=== PATIENT | male | born 1970 | race African-American/Black ===

== ENCOUNTER 2017-08-22 10:27 | Day surgery (SDC) | payer OTHER ==
[~2017-08-22] VITALS: Ht 188 cm; Wt 94.0 kg
[~2017-08-22 10:27] MED LIST: DOLOPHINE HCL10 MG PO; LO-DOSE ASPIRIN81 M1 PO; MICROZIDE12.5 M1 PO; MULTI-VITAMIN1 EAC4 PO; OXYCODONE HCL10 MG PO; PRAVACHOL20 MG PO; VERAPAMIL HCL240 MG PO
[2017-08-22 11:00] VITALS: BP 119/68
[2017-08-22 15:00] VITALS: BP 137/86
[2017-08-22 16:02] VITALS: BP 115/77
== END 2017-08-22 16:15 | disposition home or self-care (01) ==
LOC: SDC 10:27
DX: M20.21 Hallux rigidus, right foot (principal); M21.611 Bunion of right foot; M89.9 Disorder of bone, unspecified; G89.29 Other chronic pain; M25.571 Pain in right ankle and joints of right foot; M79.671 Pain in right foot; M19.079 Primary osteoarthritis, unspecified ankle and foot; I10 Essential (primary) hypertension; R73.03 Prediabetes; Z79.891 Long term (current) use of opiate analgesic; I65.29 Occlusion and stenosis of unspecified carotid artery; R74.0 Nonspecific elevation of levels of transaminase and lactic acid dehydrogenase [LDH]; E78.5 Hyperlipidemia, unspecified; Z79.82 Long term (current) use of aspirin; Z82.49 Family history of ischemic heart disease and other diseases of the circulatory system; Z82.3 Family history of stroke; Z83.3 Family history of diabetes mellitus
CPT/HCPCS: 73630; J0131; J0690; J1100; J1885; J2250; J2405; J3010; S0020